=== PATIENT | male | born 1955 | race Caucasian/White ===

== ENCOUNTER 2016-10-08 10:18 | Emergency (ER) | payer OTHER ==
[~2016-10-08] VITALS: Ht 193 cm; Wt 99.8 kg
--- NOTE | 2016-10-08 11:59 | ED GI/GU/ABDOMINAL COMPLAINT ---
History of Present Illness General Chief Complaint: Abdominal Pain/Flank Pain Stated Complaint: HERNIA ON ABDOMEN Source: patient Exam Limitations: no limitations Vital Signs & Intake/Output Vital Signs & Intake/Output Vital Signs Date Time Temp Pulse Resp B/P B/P Pulse O2 O2 Flow FiO2 Mean Ox Delivery Rate 10/08 1218 72 14 162/88 98 Room Air 10/08 1049 97.5 64 20 185/98 98 Room Air Allergies Coded Allergies: NO KNOWN ALLERGIES (11/15/12) Reconcile Medications Meloxicam (Mobic) 15 MG TABLET 1 TAB PO DAILY PRN PAIN Triage Note: PT TO ED C/O HERNIA TO ABD X 1 YEAR. STATES "I'M SICK OF HAVING IT, IT'S AGGREVATING ME". HAS NOT SEEN MD FOR IT. Triage Nurses Notes Reviewed? yes Onset: Gradual Duration: constant Timing: single episode today Quality/Severity: cramping Severity Numbers: 5 Location: periumbilical Radiation: no radiation Activities at Onset: physical activity HPI: Patient is a 61-year-old male who presents to emergency room with requests of evaluation of a hernia to his periumbilical region where he has had this for approximately 4 years. Patient states that "I am just sick of it". Patient does complain of intermittent abdominal pain especially upon palpation however denies any worsening pain today. Patient's last bowel movement was within the last 24 hours. Denies any change in color of the skin. No vomiting no nausea (YOANNA HERRMANN) Past History Travel History Traveled to [place] past 21 day No Medical History Any Pertinent Medical History? none Tetanus Vaccine: 12/16/12 Surgical History Surgical History: non-contributory Psychosocial History What is your primary language Malagasy Tobacco Use: Quit >30 days ago ETOH Use: denies use Illicit Drug Use: denies illicit drug use Family History Hx Contributory? No (YOANNA HERRMANN) Review of Systems Review of Systems Constitutional: Reports: no symptoms. EENTM: Reports: no symptoms. Respiratory: Reports: no symptoms. Cardiovascular: Reports: no symptoms. GI: Reports: abdominal pain. Genitourinary: Reports: no symptoms. Musculoskeletal: Reports: no symptoms. Skin: Reports: no symptoms. Neurological/Psychological: Reports: no symptoms. Hematologic/Endocrine: Reports: no symptoms. Immunologic/Allergic: Reports: no symptoms. All Other Systems: Reviewed and Negative (YOANNA HERRMANN) Physical Exam Physical Exam General Appearance: no apparent distress, alert, comfortable Gastrointestinal: normal bowel sounds, soft, hernia Comments: Well-developed well-nourished person in no acute distress HEENT: Normal EENT exam Neck: Supple, no lymphadenopathy, normal range of motion without pain or tenderness Back: Nontender, no CVA tenderness. Cardiovascular: Regular rate and rhythms no murmurs rubs or gallops, normal JVP Respiratory: Chest nontender. No respiratory distress.breath sounds clear to auscultation bilaterally Extremity: No edema, no calf tenderness to palpation, normal and equal pulses. Neuro: Alert oriented x3, motor sensory normal, Skin: No appreciable rash on exposed skin, skin is warm and dry. Psych: Mood and affect is normal, memory and judgment is normal. Diagram Body Front & Back 1) Noted 3 cm umbilical hernia with no surrounding change in skin color no duskiness MILDLY tender easily reducible upon minimal palpation Core Measures ACS in differential dx? No Severe Sepsis Present: No Septic Shock Present: No (YOANNA HERRMANN) Progress Differential Diagnosis: AAA, AMI, appendicitis, biliary colic, bowel obstruction , colon cancer, cholecystitis, diverticulitis, epididymitis, hernia, ischemic bowel, inflamm bowel dis, pancreatitis, SBO Plan of Care: Patient on initial examination was in no apparent distress and no concerns of strangulated or incarcerated hernia. Patient was strongly advised to obtain health insurance and then obtain primary care doctor and surgeon for his chronic umbilical hernia. Upon discharge patient looks well in no apparent distress and will comply with discharge instructions and had no questions. Initial ED EKG: none (YOANNA HERRMANN) Departure Departure Disposition: HOME OR SELF CARE Condition: Stable Clinical Impression Primary Impression: Periumbilical hernia Referrals: PATIENT HAS NO PRIMARY CARE DR (PCP/Family) Additional Instructions: As discussed please call the financial administrator Smart Panel card that has been provided to the emergency room for consultation of health insurance and please establish health insurance as soon as possible. ONCE YOU establish health insurance, please call [facility] practice to ESTABLISH A DOCTOR and please call surgeon- Dr. Santos for further evaluation and treatment of your symptoms. If symptoms worsen return to emergency room. Begin the prescription of meloxicam for pain and inflammation please avoid strenuous activity or heavy lifting as this may worsen your symptoms Prescriptions are waiting in [facility] Departure Forms: Customer Survey General Discharge Information Prescriptions: Current Visit Scripts Meloxicam (Mobic) 1 TAB PO DAILY PRN PAIN #20 TAB (CRISTINA CHAUDHARI,YOANNA) PA/BOILER ENGINEER Co-Sign Statement Statement: ED Attending supervision documentation- I saw and evaluated the patient. I have also reviewed all the pertinent lab results and diagnostic results. I agree with the findings and the plan of care as documented in the PA's/BOILER ENGINEER's documentation. x I have reviewed the ED Record and agree with the PA's/BOILER ENGINEER's documentation. [] Additions or exceptions (if any) to the PAs/BOILER ENGINEER's note and plan are summarized below: [] (JEISON BROWER,MAL)
[2016-10-08] MEDS ORDERED: MOBIC15 M1 PO (12:10)
[2016-10-08 12:18] VITALS: BP 162/88
== END 2016-10-08 12:19 ==
LOC: ERH 10:18
DX: K42.9 Umbilical hernia without obstruction or gangrene (principal)

== ENCOUNTER 2016-10-16 19:49 | Emergency (ER) | payer OTHER ==
[~2016-10-16] VITALS: Ht 193 cm; Wt 113.4 kg
[~2016-10-16 19:49] MED LIST: MOBIC15 M1 PO
--- NOTE | 2016-10-16 20:38 | ED GI/GU/ABDOMINAL COMPLAINT ---
History of Present Illness General Chief Complaint: General Adult Stated Complaint: "I HAVE A HERNIA" ABD PAIN, NAUSEA PER PT Source: patient Exam Limitations: no limitations Vital Signs & Intake/Output Vital Signs & Intake/Output Vital Signs Date Time Temp Pulse Resp B/P B/P Pulse O2 O2 Flow FiO2 Mean Ox Delivery Rate 10/17 0005 98.1 60 20 182/96 10/16 2352 98.0 60 20 182/96 98 Room Air 10/16 2136 60 177/94 10/16 2010 98.7 57 16 193/107 97 Room Air ED Intake and Output 10/17 0000 10/16 1200 Intake Total Output Total Balance Patient 250 lb Weight Weight Estimated Measurement Method Allergies Coded Allergies: NO KNOWN ALLERGIES (11/15/12) Triage Note: RECEIVED 61 YO MALE C/O WORSENING PAIN TO UMBILLICAL AREA HERNIA. PT SEEN PMD DR DANIELS TODAY AND SAID HE PUSHED IT IN. NOW AREA IS VERY PAINFUL. PT ALSO REPORTS DIZZINESS. Triage Nurses Notes Reviewed? yes Onset: Gradual Duration: hour(s): Timing: single episode today Quality/Severity: cramping, sharpness, throbbing Location: left lower quadrant, periumbilical Radiation: LEFT THIGH Activities at Onset: PHYSICAL EXAM Prior Abdominal Problems: UMBILICAL HERNIA Past Sexual History: Unobtainable at this time Modifying Factors: Worsens With: palpation. HPI: Patient is a 61-year-old male complaining of umbilical pain. Patient states he has a history of umbilical hernia x 7 years. He was evaluated today by Dr. Daniels and states that after phyiscal exam involving reducing his hernia he gradually felt increased pain. His pain is described as crampy and radiates to LLQ and left thigh. He admits to loose stools today. He also c/o dizziness and mild fatigue following take MELOXICAM for his pain. He notes dark yellow urine which is abnormal for him. He states that today he drank adequate fluids. (GEORGE CHAUDHARI,TY) Reconcile Medications Lisinopril 5 MG TABLET 1 TAB PO DAILY HTN Meloxicam (Mobic) 15 MG TABLET 1 TAB PO DAILY PRN PAIN Tramadol HCl 50 MG TABLET 1 TAB PO BIDP PRN PAIN (JEISON BROWER,MAL) Past History Travel History Traveled to [place] past 21 day No Medical History Any Pertinent Medical History? see below for history Neurological: NONE EENT: NONE Cardiovascular: NONE Respiratory: NONE Gastrointestinal: NONE Hepatic: NONE Renal: NONE Musculoskeletal: NONE Psychiatric: NONE Endocrine: NONE Blood Disorders: NONE Cancer(s): NONE Tetanus Vaccine: 12/16/12 Surgical History Surgical History: non-contributory Psychosocial History What is your primary language [place]an Tobacco Use: Never used Family History Hx Contributory? No (TY RAGLAND) Review of Systems Review of Systems Constitutional: Reports: no symptoms. Comments Review of systems: See HPI, All other systems negative. Constitutional, no chills fever or weight loss HEENT: No visual changes no sore throat no congestion Cardiovascular: No chest pain ,palpitation , orthopnea or ankle swelling Skin, no jaundice no rashes Respiratory: No dyspnea cough sputum or hemoptysis GI: no vomiting : No dysuria No hematuria Muscle skeletal: no back pain, no neck pain, Neurologic: No numbness no confusion NO FELDMAN Psych: No stress anxiety or depression,. Heme/endocrine: No bruising no bleeding no polyuria or polydipsia Immunology: No splenectomy or history of AIDS (TY RAGLAND) Physical Exam Physical Exam General Appearance: well developed/nourished, no apparent distress, alert, awake , comfortable Gastrointestinal: normal bowel sounds, soft, tenderness, hernia Comments: Well-developed well-nourished person in no acute distress HEENT: Normal EENT exam, extraocular motion intact,. Nose is atraumatic. Neck: Supple, normal range of motion without pain or tenderness Back: Nontender. Full range of motion Cardiovascular: Regular rate and rhythms no murmurs rubs or gallops, normal JVP Respiratory: Chest nontender. No respiratory distress.breath sounds clear to auscultation bilaterally Abdomen: Soft, Umbilical tenderness, LLQ tenderness, umbilical hernia PRESENT THAT IS PARTIALLY REDUCIBLE, nondistended, no appreciable organomegaly. Normal bowel sounds. No ascites Extremity: No edema, no calf tenderness to palpation, normal and equal pulses. Neuro: Alert oriented x3, motor sensory normal, CN 2-12 GROSSLY INTACT Skin: No appreciable rash on exposed skin, skin is warm and dry. Psych: Mood and affect is normal, memory and judgment is normal. Core Measures ACS in differential dx? Yes Severe Sepsis Present: No Septic Shock Present: No (TY RAGLAND) Progress Differential Diagnosis: appendicitis, bowel obstruction, diverticulitis, gastritis, pancreatitis, perforated viscous, INCARCERTAED HERNIA, STRANGULATED HERNIA Plan of Care: Orders Procedure Date/time Status MISTAKE 10/17 2111 Active TROPONIN LEVEL 10/17 2111 Complete LACTIC ACID 10/17 2111 Complete COMPREHENSIVE METABOLIC PANEL 10/17 2111 Complete CBC WITHOUT DIFFERENTIAL 10/17 2111 Complete EKG 10/17 2111 Active Laboratory Tests 10/16/162119: Anion Gap 9, Estimated GFR > 60, BUN/Creatinine Ratio 25.0, Glucose 94, Lactic Acid 1.0, Calcium 9.3, Total Bilirubin 0.8, AST 13 L, ALT 25, Alkaline Phosphatase 62, Troponin I < 0.01, Total Protein 6.9, Albumin 4.0, Globulin 2.9, Albumin/Globulin Ratio 1.4, CBC w Diff NO MAN DIFF REQ, RBC 4.45 L, MCV 88.4, MCH 29.7, RDW 12.8, MPV 8.2, Gran % 63.0, Lymphocytes % 25.7, Monocytes % 6.8, Eosinophils % 4.5, Basophils % 0 L, Absolute Granulocytes 4.3, Absolute Lymphocytes 1.7, Absolute Monocytes 0.5, Absolute Eosinophils 0.3, Absolute Basophils 0, PUBS MCHC 33.6 10/16/162111: Urine Color Cancelled, Urine Clarity Cancelled, Urine pH Cancelled, Ur Specific [place] Cancelled, Urine Protein Cancelled, Urine Ketones Cancelled, Urine Nitrite Cancelled, Urine Bilirubin Cancelled, Urine Urobilinogen Cancelled, Ur Leukocyte Esterase Cancelled, Ur Microscopic Cancelled, Urine Hemoglobin Cancelled, Urine Glucose Cancelled Diagnostic Imaging: Viewed by Me: CT Scan. Discussed w/RAD: CT Scan. Radiology Impression: PATIENT: TOMÁS GAMBLE PRESENT AGE: 61 PATIENT ACCOUNT NO: [id number] : 59 LOCATION: [facility] ORDERING PHYSICIAN: TY CHAUDHARI SERVICE DATE: 10/16/16 EXAM TYPE: CAT - CT ABD & PELVIS W IV CONTRAST EXAMINATION: CT ABDOMEN AND PELVIS WITH CONTRAST CLINICAL INFORMATION: Abdominal pain. COMPARISON: None. TECHNIQUE: Multidetector volumetric imaging was performed of the abdomen and pelvis before and after the IV administration of 95 mL of Optiray 320 intravenous contrast. Sagittal and coronal reformatted images were obtained on the technologist's workstation. DLP: 871 mGy-cm FINDINGS: LUNG BASES: The visualized lung bases are unremarkable. LIVER, GALLBLADDER, AND BILIARY TREE: The liver is normal in size, shape, and attenuation. There is a 1.4 x 1.9 cm hypoattenuating lesion within the posterior right hepatic lobe. This lesion is incompletely characterized on this examination but may reflect a hepatic cyst or hemangioma. No biliary ductal dilatation is identified. The gallbladder is unremarkable with no evidence of radiopaque gallstones, gallbladder wall thickening, or obvious pericholecystic inflammatory changes. PANCREAS: Unremarkable. SPLEEN: Unremarkable. ADRENAL GLANDS: Unremarkable. KIDNEYS AND URETERS: The kidneys are normal in size, shape , and attenuation. No hydronephrosis, hydroureter, or calculi seen. No perinephric stranding. BLADDER: Unremarkable. GASTROINTESTINAL TRACT: Normal anatomic orientation of the stomach relative to the duodenum. Normal caliber of abdominal and pelvic bowel loops, without evidence of obstruction or ileus. No circumferential bowel wall thickening with surrounding inflammatory changes to suggest an underlying infectious or inflammatory enterocolitis. Normal-appearing appendix within the right lower quadrant of the abdomen. No organizing intra- abdominal fluid collections or free intraperitoneal air. ABDOMINAL WALL: Evaluation of the abdominal wall is notable for a 4.8 x 6.4 cm fat-containing left paraumbilical hernia. There is minimal stranding of the fat within the hernia sac. This may reflect mild incarceration of the hernia fat. No loops of bowel are visualized within the hernia sac. LYMPH NODES: No significant abdominal or pelvic adenopathy. VASCULAR: Patent abdominal vasculature. Normal course and caliber of the abdominal aorta and its branching vessels, without aneurysmal dilatation. PELVIC VISCERA: Unremarkable. OSSEOUS STRUCTURES: No acute osseous abnormality. Normal alignment of the thoracolumbar spine. IMPRESSION: A moderate fat-containing left paraumbilical hernia measuring approximately 4.8 x 6.4 cm in AP and transverse dimensions respectively. There is minimal fat stranding within the hernia sac. This finding is nonspecific but may reflect incarceration of the herniated fat. Otherwise, no acute findings within the abdomen or pelvis to explain patient symptomatology. This critical result was discussed with Dr. Ty Bravo at 11:07 PM on 10/16/2016 and it was ascertained that the content and urgency of the report was understood at the time of direct communication. DICTATED BY: URSULA DONAHUE MD DATE/TIME DICTATED :10/16/162250 BREWERY CELLAR WORKER:RAVI DATE/TIME TRANSCRIBED:10/16/162250 CONFIDENTIAL, DO NOT COPY WITHOUT APPROPRIATE AUTHORIZATION. < Electronically signed in Other Vendor System> SIGNED BY: URSULA DONAHUE MD 10/16/16 2311 Initial ED EKG: NSR (51 BPM) Comments: Spoke with Dr. Daniels regarding CT findings. Recommending patient be discharged home with pain medication. He will see him in the office next week. Patient informed of all of her results and imaging study results. Patient also informed to follow up with the PCP regarding hypertension. Patient not having any headaches. No visual changes. No chest pain or palpitations. (TY RAGLAND) Departure Departure Time of Disposition: 2328 Disposition: HOME OR SELF CARE Condition: Stable Clinical Impression Primary Impression: Umbilical hernia Qualifiers: Obstruction and gangrene presence: without obstruction or gangrene Qualified Code: K42.9 - Umbilical hernia without obstruction or gangrene Secondary Impressions: Hypertension Qualifiers: Hypertension type: essential hypertension Qualified Code: I10 - Essential (primary) hypertension Referrals: PATIENT HAS NO PRIMARY CARE DR (PCP/Family) JEREMIAH BROWER,KAYLIN Yu Additional Instructions: KEEP APPT WITH Dr. Daniels, return for worsening symptoms or concerns. Departure Forms: Customer Survey General Discharge Information Prescriptions: Current Visit Scripts Tramadol HCl 1 TAB PO BIDP PRN PAIN #10 TAB Lisinopril 1 TAB PO DAILY #10 TAB (TY RAGLAND) PA/ASPARAGUS BUNCHER Co-Sign Statement Statement: ED Attending supervision documentation- I saw and evaluated the patient. I have also reviewed all the pertinent lab results and diagnostic results. I agree with the findings and the plan of care as documented in the PA's/ASPARAGUS BUNCHER's documentation. x I have reviewed the ED Record and agree with the PA's/ASPARAGUS BUNCHER's documentation. [] Additions or exceptions (if any) to the PAs/ASPARAGUS BUNCHER's note and plan are summarized below: [] (JEISON BROWER,MAL)
[2016-10-16 21:35] LABS: ABSOLUTE BASOPHIL COUNT 0 /CUMM (0.0-0.2); ABSOLUTE EOSINOPHIL COUNT 0.3 /CUMM (0.0-0.7); ABSOLUTE GRANULOCYTE CT 4.3 /CUMM (1.4-6.5); ABSOLUTE LYMPH COUNT 1.7 /CUMM (1.2-3.4); ABSOLUTE MONOCYTE COUNT 0.5 /CUMM (0.10-0.60); BASOPHIL % 0 % (0.0-2.0); EOSINOPHIL % 4.5 % (0-5); HEMATOCRIT 39.3 % (42-52); MEAN CORPUSCULAR HGB 29.7 PG (27.0-31.0); MEAN CORPUSCULAR HGB CONC 33.6 G/DL (33.0-37.0); MEAN CORPUSCULAR VOLUME 88.4 FL (80.0-94.0); MEAN PLATELET VOLUME 8.2 FL (7.4-10.4); PLATELET COUNT 225 /CUMM (130-400); RBC DISTRIBUTION WIDTH 12.8 % (11.5-14.5); RED BLOOD CELL CT 4.45 /CUMM (4.70-6.10); WHITE BLOOD CELL COUNT 6.8 /CUMM (4.8-10.8)
--- NOTE | 2016-10-16 23:11 | CT SCAN REPORT ---
EXAMINATION: CT ABDOMEN AND PELVIS WITH CONTRAST CLINICAL INFORMATION: Abdominal pain. COMPARISON: None. TECHNIQUE: Multidetector volumetric imaging was performed of the abdomen and pelvis before and after the IV administration of 95 mL of Optiray 320 intravenous contrast. Sagittal and coronal reformatted images were obtained on the technologist's workstation. DLP: 871 mGy-cm FINDINGS: LUNG BASES: The visualized lung bases are unremarkable. LIVER, GALLBLADDER, AND BILIARY TREE: The liver is normal in size, shape, and attenuation. There is a 1.4 x 1.9 cm hypoattenuating lesion within the posterior right hepatic lobe. This lesion is incompletely characterized on this examination but may reflect a hepatic cyst or hemangioma. No biliary ductal dilatation is identified. The gallbladder is unremarkable with no evidence of radiopaque gallstones, gallbladder wall thickening, or obvious pericholecystic inflammatory changes. PANCREAS: Unremarkable. SPLEEN: Unremarkable. ADRENAL GLANDS: Unremarkable. KIDNEYS AND URETERS: The kidneys are normal in size, shape, and attenuation. No hydronephrosis, hydroureter, or calculi seen. No perinephric stranding. BLADDER: Unremarkable. GASTROINTESTINAL TRACT: Normal anatomic orientation of the stomach relative to the duodenum. Normal caliber of abdominal and pelvic bowel loops, without evidence of obstruction or ileus. No circumferential bowel wall thickening with surrounding inflammatory changes to suggest an underlying infectious or inflammatory enterocolitis. Normal-appearing appendix within the right lower quadrant of the abdomen. No organizing intra-abdominal fluid collections or free intraperitoneal air. ABDOMINAL WALL: Evaluation of the abdominal wall is notable for a 4.8 x 6.4 cm fat-containing left paraumbilical hernia. There is minimal stranding of the fat within the hernia sac. This may reflect mild incarceration of the hernia fat. No loops of bowel are visualized within the hernia sac. LYMPH NODES: No significant abdominal or pelvic adenopathy. VASCULAR: Patent abdominal vasculature. Normal course and caliber of the abdominal aorta and its branching vessels, without aneurysmal dilatation. PELVIC VISCERA: Unremarkable. OSSEOUS STRUCTURES: No acute osseous abnormality. Normal alignment of the thoracolumbar spine. IMPRESSION: A moderate fat-containing left paraumbilical hernia measuring approximately 4.8 x 6.4 cm in AP and transverse dimensions respectively. There is minimal fat stranding within the hernia sac. This finding is nonspecific but may reflect incarceration of the herniated fat. Otherwise, no acute findings within the abdomen or pelvis to explain patient symptomatology. This critical result was discussed with Dr. Olga Lidia Bravo at 11:07 PM on 10/16/2016 and it was ascertained that the content and urgency of the report was understood at the time of direct communication.
[2016-10-16] MEDS ORDERED: TRAMADOL HCL50 M1 PO (23:31)
[2016-10-17 00:05] VITALS: BP 182/96
[2016-10-17] MEDS ORDERED: LISINOPRIL5 M1 PO (00:14)
== END 2016-10-17 00:27 ==
LOC: ERH 19:49
PROVIDERS: Physician Assistant
DX: K42.9 Umbilical hernia without obstruction or gangrene (principal); I10 Essential (primary) hypertension
CPT/HCPCS: 74177; 93005; 93010

== ENCOUNTER → 2016-11-05 | Day surgery (SDC) | payer OTHER ==
[~2016-11-05] VITALS: Ht 193 cm; Wt 108.9 kg
[~2016-11-05] MED LIST changes: +LISINOPRIL5 M1 PO; +TRAMADOL HCL50 M1 PO
[2016-11-05 08:20] LABS: ABSOLUTE BASOPHIL COUNT 0 /CUMM (0.0-0.2); ABSOLUTE EOSINOPHIL COUNT 0.3 /CUMM (0.0-0.7); ABSOLUTE GRANULOCYTE CT 4.1 /CUMM (1.4-6.5); ABSOLUTE LYMPH COUNT 1.5 /CUMM (1.2-3.4); ABSOLUTE MONOCYTE COUNT 0.5 /CUMM (0.10-0.60); BASOPHIL % 0.4 % (0.0-2.0); EOSINOPHIL % 4.7 % (0-5); HEMATOCRIT 40.4 % (42-52); MEAN CORPUSCULAR HGB 29.7 PG (27.0-31.0); MEAN CORPUSCULAR HGB CONC 33.6 G/DL (33.0-37.0); MEAN CORPUSCULAR VOLUME 88.5 FL (80.0-94.0); MEAN PLATELET VOLUME 7.9 FL (7.4-10.4); PLATELET COUNT 204 /CUMM (130-400); RBC DISTRIBUTION WIDTH 13.1 % (11.5-14.5); RED BLOOD CELL CT 4.56 /CUMM (4.70-6.10); WHITE BLOOD CELL COUNT 6.3 /CUMM (4.8-10.8)
--- NOTE | 2016-11-05 15:04 | Operative Report ---
Operative/Inv Procedure Report Surgery Date: 11/05/16 Name of Procedure: Incarcerated ventral hernia repair with mesh Pre-Operative Diagnosis: Incarcerated ventral hernia Post-Operative Diagnosis: Same Estimated Blood Loss: scant Surgeon/Retread Supervisor: JEREMIAH BROWER,KAYLIN Yu/Rhys CHAUDHARI Anesthesia: laryngeal mask airway Implants: 6.4 cm ventral X mesh Operative/Procedure Note Note: After consent he is brought to the operating room and laid supine. Gen. anesthesia was obtained and his abdomen was prepped and draped. There is a large incarcerated periumbilical hernia. An infraumbilical incision was made sharply. Subcutaneous tissues tissues dissected with cautery and blunt dissection. The umbilical stalk was transected and the entire defect was evaluated. Approximately 5 cm hernia containing incarcerated omentum. We dissected down to the neck of the contents. The neck was much smaller. It was incised circumferentially with cautery. Were then able to reduce the contents back in the abdominal cavity. We had entered the peritoneum to do so. The resultant defect was 3 cm in greatest dimension. Preperitoneal circumferential dissection was then made to allow placement of ventral hernia mesh. A 6.4 cm mesh was chosen. It was placed in the cavity then unraveled below the defect. Once were happy the placement of mesh the fascia was closed over it while incorporating the anterior portion of the mesh with 0 Maxon sutures. The wound was irrigated with saline. The umbilical stock was re-created with 3-0 Vicryl. The incisions closed in layers of 3-0 and 4-0 Vicryl. Steri-Strips and sterile dressing applied. Sponge and needle counts are correct
== END ==
LOC: STS 02:15
PROVIDERS: Surgery
DX: K42.0 Umbilical hernia with obstruction, without gangrene (principal); K46.0 Unspecified abdominal hernia with obstruction, without gangrene; R39.14 Feeling of incomplete bladder emptying; Z87.891 Personal history of nicotine dependence
CPT/HCPCS: 36415; 93005; 93010; J0131; J0360; J0690; J2250